=== PATIENT | female | born 1990 | race Caucasian/White ===

== ENCOUNTER 2018-09-29 09:51 | Day surgery (SDC) | payer OTHER ==
[~2018-09-29] VITALS: Ht 172.7 cm; Wt 79.8 kg
[~2018-09-29 09:51] MED LIST: LR 1,000 ML IV ONE; OMEP-218 PO; dexameTHASONE 4 MG/ML 1ML VIAL (J1100) IV ONE
[2018-09-29 11:44] LABS: URINE PREG TEST NEGATIVE (NEGATIVE)
[2018-09-29] MEDS ORDERED: MIDAZOLAM INJ 2 MG/2 ML VIAL (J2250) As Ordered ONE (12:24)
[2018-09-29] MEDS ORDERED: fentaNYL 100 MCG/2 ML INJECTION (J3010) As Ordered ONE ×2 (12:24→14:08)
[2018-09-29] MEDS ORDERED: PROPOFOL 200 MG/20 ML VIAL As Ordered ONE (12:26)
[2018-09-29] MEDS ORDERED: ROCURONIUM BROMIDE 50 MG/5 ML VIAL As Ordered ONE (12:27)
[2018-09-29] MEDS ORDERED: LIDOCAINE 2% INJ 100 MG/5 ML SDV (FOR ANES.) As Ordered ONE (12:28)
[2018-09-29] MEDS ORDERED: dexameTHASONE 4 MG/ML 1ML VIAL (J1100) As Ordered ONE (12:29)
[2018-09-29] MEDS ORDERED: ONDANSETRON 4MG/2ML VIAL (J2405) As Ordered ONE (12:29)
[2018-09-29] MEDS ORDERED: SUGAMMADEX SODIUM 500 MG/5 ML VIAL (BRIDION) As Ordered ONE (12:31)
[2018-09-29] MEDS ORDERED: GLYCOPYRROLATE INJ 0.2 MG/ML 2 ML VIAL As Ordered ONE (13:37)
[2018-09-29] MEDS ORDERED: NEOSTIGMINE 10 MG/10 ML VIAL (J2710) As Ordered ONE (13:37)
[2018-09-29] MEDS ORDERED: HYDROcodone/APAP LIQUID 7.5-325MG 15ML UDC (LORTAB ELIXIR) As Ordered ONE (14:07)
[2018-09-29] MEDS ORDERED: METOCLOPRAMIDE INJ 10MG/2ML VIAL (J2765) IV PRN (14:45)
[2018-09-29] MEDS ORDERED: PERCOCET 5MG/325MG TAB PO PRN (14:45)
[2018-09-29] MEDS ORDERED: ONDANSETRON 4MG/2ML VIAL (J2405) IV PRN (14:45)
[2018-09-29] MEDS ORDERED: HYDROcodone/APAP LIQUID 7.5-325MG 15ML UDC (LORTAB ELIXIR) PO PRN (14:45)
[2018-09-29] MEDS ORDERED: LR 1,000 ML IV SCH ×2 (14:45)
[2018-09-29] MEDS ORDERED: fentaNYL 100 MCG/2 ML INJECTION (J3010) IV PRN (14:45)
[2018-09-29 15:50] VITALS: BP 126/70
--- NOTE | 2018-09-29 21:38 | RO ---
DATE OF PROCEDURE: 09/29/2018 PREOPERATIVE DIAGNOSIS: Tonsillar hypertrophy. POSTOPERATIVE DIAGNOSIS: Tonsillar hypertrophy. PROCEDURE PERFORMED: Tonsillectomy. SURGEON: Rey Garcia MD TOUR COORDINATOR: ANESTHESIA: General. CLINICAL PREAMBLE: This 28-year-old woman presented to the office with history of enlarged tonsils. Physical examination revealed asymmetrically enlarged right tonsil. Management options including tonsillectomy have been discussed. The patient understood and consented to the procedure. INTRAOPERATIVE FINDINGS: Right tonsil appeared to be asymmetrically enlarged. Both tonsils were sent separately according to the lymphoma protocol to pathology department for further evaluation. DESCRIPTION OF PROCEDURE: Patient was identified in preoperative holding and brought to the operating room in stable condition. In supine position on the operating table, patient received general anesthesia followed by orotracheal intubation without incident. Patient was prepped and draped in the usual fashion for the procedure. The Andres-Yordy mouth gag was inserted and suspended. The right tonsil was medialized using curved Allis forceps. Mucosal incision was made over the superior pole of the right tonsil using the Coblator wand set at 7 for Coblation. The tonsillar capsule was identified, and dissection was carried out along this plane to excise the right tonsil. The left tonsil was then similarly dissected out. At the end of the procedure, both tonsil beds were free of bleeding. Estimated blood loss was less than 10 mL. No complication was encountered. Sponge and instruments counts were correct at the end of the procedure. General anesthesia was reversed, and patient was extubated and brought to the recovery room in stable condition.
== END 2018-09-29 16:10 | disposition home or self-care (01) ==
LOC: M SDC 09:51
PROVIDERS: ATTEND Otolaryngology
DX: J35.1 Hypertrophy of tonsils (principal); K21.9 Gastro-esophageal reflux disease without esophagitis; Z79.899 Other long term (current) drug therapy
CPT/HCPCS: 42826; 84703; 88302; J1100; J2250; J2405; J2710; J3010